=== PATIENT | female | born 1990 | race Caucasian/White ===

== ENCOUNTER 2016-10-02 19:22 | Emergency (ER) | payer MEDICAID, OTHER ==
[~2016-10-02] VITALS: Ht 160 cm; Wt 56.0 kg
[2016-10-02 19:29] VITALS: Ht 160 cm; Wt 56.0 kg
[2016-10-02 21:14] LABS: ADD SCAN DIFF NO
[2016-10-02 21:16] LABS: BASOPHILS % 0.6 % (0.0-2.0); EOSINOPHILS # 0.2 10^3/ul (0.0-0.5); EOSINOPHILS % 2.1 % (0.0-7.0); HEMATOCRIT 37.3 % (37.0-47.0); HEMOGLOBIN 12.5 g/dl (12.0-16.0); LYMPHOCYTES # 2.7 10^3/ul (0.8-2.9); LYMPHOCYTES % 37.8 % (15.0-51.0); MEAN CORPUSCULAR HEMOGLOBIN 29.7 pg (29.0-33.0); MEAN CORPUSCULAR HGB CONC 33.5 g/dl (32.0-37.0); MEAN CORPUSCULAR VOLUME 88.6 fl (82.0-101.0); MONOCYTE # 0.6 10^3/ul (0.3-0.9); MONOCYTES % 8.3 % (0.0-11.0); NEUTROPHIL # 3.7 10^3/ul (1.6-7.5); NEUTROPHILS % 51.1 % (39.0-77.0); PLATELET COUNT 310 10^3/UL (140-415); RED BLOOD COUNT 4.21 10^6/ul (4.20-5.40); RED CELL DISTRIBUTION WIDTH 12.9 % (11.5-14.5); WHITE BLOOD COUNT 7.3 10^3/ul (4.8-10.8)
[2016-10-02 21:30] LABS: ADD UMIC YES; UR ASCORBIC ACID 40 mg/dL (NEGATIVE); UR BACTERIA FEW /HPF (NONE SEEN); UR BILIRUBIN (Dip) NEGATIVE (NEGATIVE); UR BLOOD (Dip) NEGATIVE (NEGATIVE); UR CLARITY SLIGHTLY CLOUDY (CLEAR); UR COLOR YELLOW (YELLOW); UR GLUCOSE (Dip) NEGATIVE (NEGATIVE); UR KETONES (Dip) NEGATIVE (NEGATIVE); UR LEUKOCYTE ESTERASE (Dip) TRACE Leu/ul (NEGATIVE); UR NITRITE (Dip) NEGATIVE (NEGATIVE); UR RBC 4 /HPF (0-5); UR SPECIFIC GRAVITY (Dip) 1.027 (1.003-1.030); UR SQUAMOUS EPITHELIAL CELL FEW /HPF (FEW); UR TOTAL PROTEIN (Dip) NEGATIVE (NEGATIVE); UR UROBILINOGEN (Dip) NEGATIVE (NEGATIVE)
[2016-10-02 21:38] LABS: ALBUMIN 5.1 g/dl (3.3-4.9); ALBUMIN/GLOBULIN RATIO 1.59; BILIRUBIN,INDIRECT 0.3 mg/dl (0-1.1); BILIRUBIN,TOTAL 0.3 mg/dl (0.2-1.3); CALCIUM 9.4 mg/dl (8.4-10.2); CREATININE 0.87 mg/dl (0.44-1.00); POTASSIUM 3.8 mmol/L (3.5-5.1); TOTAL PROTEIN 8.3 g/dl (6.1-8.1)
--- NOTE | 2016-10-02 21:51 | RADRPT ---
PROCEDURE: CT Brain without contrast. CLINICAL INDICATION: Dizziness. Blacking out. TECHNIQUE: A CT of the brain was performed on a multidetector CT scanner utilizing axial sections from the skull base through the vertex without contrast. Images were reviewed on a high-resolution [employer] workstation. Exam CTDI = 44.73 mGy and the DLP = 630.20 mGy-cm. One or more of the following dose reduction techniques were used: Automated exposure control Adjustment of the mA and/or kV according to patient size. Use of iterative reconstruction technique. COMPARISON: None available FINDINGS: There is no evidence of intracranial hemorrhage, mass effect or midline shift. No abnormal intra-ax ial or extra-axial fluid collections are seen. The density of the brain is normal and the valdovinos/whit e matter differentiation is well preserved. The osseous structures are unremarkable. Paranasal si nuses are clear. There is sclerosis of the right mastoid air cells. There is normal aeration of the bilateral middle ear cavities, and left mastoid air cells. IMPRESSION: 1. No intracranial hemorrhage, mass effect or midline shift. RPTAT: HHO .Nabila Valle MD, Date Time Electronically viewed and signed by .Nabila Valle MD, on 10/02/2016 21:51 .O/
--- NOTE | 2016-10-02 22:28 | ERD ---
ER Documentation Chief Complaint Date/Time DATE: 10/02/16 TIME: 22:21 Chief Complaint dizzy/weak x1 mo. worse today. phys done at [facility] bp was low. sent for eval HPI This is a 26-year-old female presents to the ER for complaints of dizziness for the last month. Patient has gotten worse and that it is worse whenever she stands up. Patient is also complaining of a headache almost every day headache is throbbing in quality. Patient takes Tylenol and headache gets better. Patient denies any head trauma. She denies any nausea vomiting or diarrhea. Patient denies any fevers or chills. Patient states that she does not usually have time to eat and that she eats breakfast and usually skips lunch, and does not eat until late at night. Patient denies any chest pain shortness of breath. Patient denies any palpitations. Patient states that on Wednesday she developed cough and cold symptoms however she is feeling better today. Patient denies any ear pain, tinnitus. ROS 12 point review of systems was done, all negative except per HPI. Allergies Allergies: Coded Allergies: No Known Allergy (Unverified , 10/02/16) PMhx/Soc Medical and Surgical Hx: pt denies Medical Hx, pt denies Surgical Hx Hx Alcohol Use: No Hx Substance Use: No Hx Tobacco Use: No Smoking Status: Never smoker Physical Exam Vitals Vital Signs Date Time Temp Pulse Resp B/P Pulse Ox O2 Delivery O2 Flow Rate FiO2 10/02/16 21:27 65 16 105/72 100 Room Air 66 107/75 68 111/78 10/02/16 19:29 98.6 82 18 127/85 100 Physical Exam GENERAL: The patient is well developed and appropriate for usual state of health , in no apparent distress. HEENT: Atraumatic. Conjunctivae are pink. Pupils equal, round, and reactive to light. Extraocular muscles are grossly intact. No nystagmus. Bilateral tympanic membranes are clear with no evidence of erythema, bulging or perforation. NECK: C-spine is soft and supple. There is no cervical lymphadenopathy. CHEST: Clear to auscultation bilaterally. There are no rales, wheezes or rhonchi. HEART: Regular rate and rhythm. No murmurs, clicks, rubs or gallops. EXTREMITIES: Equal pulses bilaterally. There is no peripheral clubbing, cyanosis or edema. No focal swelling or erythema. Full range of motion. Grossly neurovascularly intact. NEURO: Alert and oriented. Cranial nerves II through XII are intact. Motor strength in all 4 extremities with 5/5 strength. Sensation grossly intact. Normal speech and gait. Negative Rhomberg. +2 DTRs. SKIN: There is no apparent rash or petechia. The skin is warm and dry. Result Diagram: 10/02/16 2100 10/02/16 2100 Results 24 hrs Laboratory Tests Test 10/02/16 21:00 White Blood Count 7.310^3/ul Red Blood Count 4.2110^6/ul Hemoglobin 12.5g/dl Hematocrit 37.3% Mean Corpuscular Volume 88.6fl Mean Corpuscular Hemoglobin 29.7pg Mean Corpuscular Hemoglobin Concent 33.5g/dl Red Cell Distribution Width 12.9% Platelet Count 81770^3/UL Mean Platelet Volume 9.0fl Neutrophils % 51.1% Lymphocytes % 37.8% Monocytes % 8.3% Eosinophils % 2.1% Basophils % 0.6% Nucleated Red Blood Cells % 0.0/100WBC Neutrophils # 3.710^3/ul Lymphocytes # 2.710^3/ul Monocytes # 0.610^3/ul Eosinophils # 0.210^3/ul Basophils # 0.010^3/ul Nucleated Red Blood Cells # 0.010^3/ul Urine Color YELLOW Urine Clarity SLIGHTLY CLOUDY Urine pH 7.0 Urine Specific [place] 1.027 Urine Ketones NEGATIVEmg/dL Urine Nitrite NEGATIVEmg/dL Urine Bilirubin NEGATIVEmg/dL Urine Urobilinogen NEGATIVEmg/dL Urine Leukocyte Esterase TRACELeu/ul Urine Microscopic RBC 4/HPF Urine Microscopic WBC 1/HPF Urine Squamous Epithelial Cells FEW/HPF Urine Bacteria FEW/HPF Urine Hemoglobin NEGATIVEmg/dL Urine Glucose NEGATIVEmg/dL Urine Total Protein NEGATIVEmg/dl Sodium Level 138mmol/L Potassium Level 3.8mmol/L Chloride Level 100mmol/L Carbon Dioxide Level 27mmol/L Anion Gap 15 Blood Urea Nitrogen 13mg/dl Creatinine 0.87mg/dl Glucose Level 66mg/dl Calcium Level 9.4mg/dl Total Bilirubin 0.3mg/dl Direct Bilirubin 0.00mg/dl Indirect Bilirubin 0.3mg/dl Aspartate Amino Transf (AST/SGOT) 19IU/L Alanine Aminotransferase (ALT/SGPT) 19IU/L Alkaline Phosphatase 59IU/L Total Protein 8.3g/dl Albumin 5.1g/dl Globulin 3.20g/dl Albumin/Globulin Ratio 1.59 [place] [id number] Radiology Main Line: [phone] DIAGNOSTIC IMAGING REPORT Patient: ALE RODRIGUEZ : 1990 Age: 26 Sex: F MR #: [id number] DOS: 10/02/16 0000 Ordering MD: ALE CULP. PA-C Location: [facility] Room/Bed: PROCEDURE: CT Brain without contrast. CLINICAL INDICATION: Dizziness. Blacking out. TECHNIQUE: A CT of the brain was performed on a multidetector CT scanner utilizing axial sections from the skull base through the vertex without contrast. Images were reviewed on a high-resolution PACS workstation. Exam CTDI = 44.73 mGy and the DLP = 630.20 mGy-cm. One or more of the following dose reduction techniques were used: Automated exposure control Adjustment of the mA and/or kV according to patient size. Use of iterative reconstruction technique. COMPARISON: None available FINDINGS: There is no evidence of intracranial hemorrhage, mass effect or midline shift. No abnormal intra-axial or extra-axial fluid collections are seen. The density of the brain is normal and the valdovinos/white matter differentiation is well preserved. The osseous structures are unremarkable. Paranasal sinuses are clear. There is sclerosis of the right mastoid air cells. There is normal aeration of the bilateral middle ear cavities, and left mastoid air cells. IMPRESSION: 1. No intracranial hemorrhage, mass effect or midline shift. RPTAT: HHO .Nabila Valle MD, MD Date Time Electronically viewed and signed by .Nabila Valle MD, MD on 10/02/2016 21:51 .O/ CC: ALE CULP Procedures/MDM Differential Diagnosis includes but is not limited to; Benign positional vertigo , labyrinthitis, vertigo, MS, acoustic neuroma, arrhythmia, anemia, hypoglycemia , infection, dehydration. At this time etiology of dizziness is unknown. Patient did not have hypertension upon triage and orthostatic vital signs were taken with no evidence of orthostatic hypotension. EKG was taken [address] elevation or T- wave inversion. Suspicion for cardiac etiology is low. Patient did not have any arrhythmias on physical examination or an EKG. there is no evidence of anemia or infections. Patient is afebrile and well-appearing. I do not believe that patient is dehydrated as she has not had any nausea vomiting or diarrhea and she is able to tolerate p.o. fluids. Patient admits to not eating appropriately, this may be the reason for her dizziness. Patient is to follow- up with her primary care doctor within 1-2 days return to ER sooner if symptoms worsen. My medical decision making shared with the patient she understands and agrees with plan. Departure Diagnosis: Primary Impression: Dizziness Condition: Stable Patient Instructions: Dizziness, Unk Cause Additional Instructions: Llame al doctor GEORGINA y jacquelyn conchita SKYLA PARA DENTRO DE 1-2 GOODE.Dgale a la secretaria que nosotros le instruimos hacer esta skyla.Avise o llame si browning condicin se empeora antes de la skyla. Regresa aqui si peor o no mejor. ALE CULP Oct 02, 2016 22:28
[2016-10-02] MEDS ORDERED: SOD CHLORIDE 0.9% 1,000 ML IV ONE (23:30)
[2016-10-03 00:21] VITALS: BP 104/68; PULSE 66; RESP 18; TEMP 98.3
== END 2016-10-03 00:23 | disposition home or self-care (01) ==
LOC: FTE 19:22
DX: R42 Dizziness and giddiness (principal)
CPT/HCPCS: 70450; 80053; 81001; 85025; J7030; Z7502; 93005